=== PATIENT | female | born 1935 | race Caucasian/White ===

== ENCOUNTER 2016-09-11 14:07 | Inpatient (IN) | payer MEDICARE, OTHER ==
[~2016-09-11] VITALS: Ht 180.3 cm; Wt 60.0 kg
[2016-09-11] MEDS ORDERED: IOVERSOL 350 MG/ML 100 ML VIAL ONE (14:18)
[2016-09-11] MEDS ORDERED: SODIUM CHLORIDE 0.9% 100 ML ONE (14:19)
[2016-09-11 14:25] LABS: BASOPHILS % (AUTO) 0.2 % (0.0-2.0); EOSINOPHILS % (AUTO) 1.2 % (1.0-6.0); HEMATOCRIT 34.2 % (36-46); HEMOGLOBIN 11.2 g/dL (12.0-16.0); LYMPHOCYTES # (AUTO) 2.9 K/uL (1.0-4.8); LYMPHOCYTES % (AUTO) 44.8 % (22.0-44.0); MEAN CORPUSCULAR HEMOGLOBIN 28.8 pg (26.0-34.0); MEAN CORPUSCULAR HGB CONC 32.6 G/dL (31.0-37.0); MEAN CORPUSCULAR VOLUME 88 fL (80-100); MONOCYTES # (AUTO) 0.2 K/uL (0.1-1.0); MONOCYTES % (AUTO) 3.5 % (2.0-9.0); NEUTROPHILS # (AUTO) 3.3 K/uL (1.8-7.7); NEUTROPHILS % (AUTO) 50.3 % (40.0-70.0); PLATELET COUNT (AUTO) 269 K/uL (150-450); RED BLOOD CELL COUNT(AUTO) 3.87 MIL/uL (4.00-5.20); RED CELL DISTRIBUTION WIDTH 13.5 % (11.5-14.5); WHITE BLOOD COUNT (AUTO) 6.6 K/uL (4.5-11.0)
[2016-09-11 14:38] LABS: ANION GAP 16 mmol/L (8-16); CALCIUM, TOTAL 8.4 mg/dL (8.8-10.5); CARBON DIOXIDE 18 mmol/L (22-29); CHLORIDE 105 mmol/L (98-107); CREATININE 1.54 mg/dL (0.60-1.30); GLOMERULAR FILTR. RATE CALC 32 mL/min (>60); POTASSIUM 4.5 mmol/L (3.5-5.1); SODIUM SERUM 139 mmol/L (136-145); UREA NITROGEN, BLOOD 26 mg/dL (7-18)
[2016-09-11] MEDS ORDERED: ACETAMINOPHEN 1000 MG/ISO-OSM 100 ML IV ONE (15:00)
[2016-09-11 15:01] LABS: ALANINE AMINOTRANSFERASE 38 U/L (12-78); ALBUMIN 3.2 g/dL (3.4-5.0); ASPARTATE AMINOTRANSFERASE 69 U/L (15-37); BILIRUBIN,TOTAL 0.3 mg/dL (0.1-1.0); CREATINE KINASE MB 3.2 ng/mL (0-5); CREATINE KINASE, TOTAL 241 U/L (26-192)
[2016-09-11 15:14] LABS: LACTIC ACID 2.9 mmol/L (0.4-2.0)
[2016-09-11] MEDS ORDERED: LORazepam 2 MG/ML VIAL IM ONE (15:30)
[2016-09-11] MEDS ORDERED: SIMV-260 PO (15:39)
[2016-09-11] MEDS ORDERED: CYCL10 PO (15:39)
[2016-09-11] MEDS ORDERED: ASPI81 PO (15:39)
[2016-09-11] MEDS ORDERED: OMEP20 PO (15:39)
[2016-09-11] MEDS ORDERED: MULT-1259 PO (15:39)
[2016-09-11] MEDS ORDERED: TOLT2CAP27 PO (15:39)
[2016-09-11] MEDS ORDERED: HYDR-305 PO (15:39)
[2016-09-11] MEDS ORDERED: ATEN25 PO (15:39)
[2016-09-11] MEDS ORDERED: CALC-687 PO (15:39)
[2016-09-11] MEDS ORDERED: ALPR0.5T8 PO (15:39)
[2016-09-11] MEDS ORDERED: PIPERACILLIN/TAZO 3.375 GM/D5W 50 ML IV ONE (15:45)
[2016-09-11 16:22] LABS: REFLEX LACTIC ACID? YES YES
[2016-09-11 16:36] LABS: APPEARANCE,URINE CLEAR (CLEAR); GLUCOSE, URINE (UA) NEGATIVE (NEGATIVE); KETONES,URINE NEGATIVE (NEGATIVE); LEUKOCYTE ESTERASE ,URINE NEGATIVE (NEGATIVE); OCCULT BLOOD,URINE LARGE (NEGATIVE); PH,URINE 5.5 (5.0-8.0); PROTEIN,URINE POS 1+ (NEGATIVE)
[2016-09-11 16:39] LABS: ADD UA MICROSCOPIC YES
[2016-09-11 17:42] LABS: SQUAMOUS EPITHELIAL CELL,UR Few /LPF (None Seen)
[2016-09-11 19:23] LABS: INFLUENZA TYPE B NEGATIVE FOR TYPE B (NEGATIVE)
[2016-09-11] MEDS ORDERED: MAGNESIUM HYDROXIDE SUSPENSION 30 ML UDCUP PO PRN (21:00)
[2016-09-11] MEDS ORDERED: ACETAMINOPHEN 325 MG TABLET PO PRN (21:00)
[2016-09-11] MEDS ORDERED: BISACODYL 10 MG RECTAL RECTAL SUPPOSITORY PR PRN (21:00)
[2016-09-11] MEDS ORDERED: ALBUTEROL SULFATE 2.5 MG/0.5 ML NEB SOLUTION NEB PRN (21:00)
[2016-09-11 21:17] VITALS: BP 138/64
[2016-09-11] MEDS: ASPIRIN 81 MG CHEWABLE TABLET PO SCH (22:37)
[2016-09-11] MEDS: DOCUSATE SODIUM 100 MG CAPSULE PO SCH (22:37)
[2016-09-11] MEDS: SIMVASTATIN 20 MG TABLET PO SCH (22:38)
[2016-09-11] MEDS: SODIUM CHLORIDE 0.9% 1,000 ML IV SCH (22:39)
[2016-09-11 23:56] VITALS: BP 122/57
[2016-09-12] MEDS: HEPARIN SODIUM,PORCINE 5,000 UNITS/ML VIAL SQ SCH ×4 (00:19→23:26)
[2016-09-12 04:24] VITALS: BP 155/70
[2016-09-12 07:23] LABS: BASOPHILS % (AUTO) 0.3 % (0.0-2.0); EOSINOPHILS % (AUTO) 0.1 % (1.0-6.0); HEMATOCRIT 32.9 % (36-46); HEMOGLOBIN 10.5 g/dL (12.0-16.0); LYMPHOCYTES # (AUTO) 2.1 K/uL (1.0-4.8); LYMPHOCYTES % (AUTO) 18.2 % (22.0-44.0); MEAN CORPUSCULAR HEMOGLOBIN 28.8 pg (26.0-34.0); MEAN CORPUSCULAR VOLUME 90 fL (80-100); MONOCYTES # (AUTO) 0.7 K/uL (0.1-1.0); NEUTROPHILS # (AUTO) 8.5 K/uL (1.8-7.7); NEUTROPHILS % (AUTO) 75.4 % (40.0-70.0); PLATELET COUNT (AUTO) 203 K/uL (150-450); RED BLOOD CELL COUNT(AUTO) 3.65 MIL/uL (4.00-5.20); RED CELL DISTRIBUTION WIDTH 13.8 % (11.5-14.5); WHITE BLOOD COUNT (AUTO) 11.3 K/uL (4.5-11.0)
[2016-09-12 07:37] LABS: CALCIUM, TOTAL 8.4 mg/dL (8.8-10.5); CREATININE 1.18 mg/dL (0.60-1.30); POTASSIUM 3.1 mmol/L (3.5-5.1)
[2016-09-12] MEDS: DOCUSATE SODIUM 100 MG CAPSULE PO SCH ×2 (08:23→21:07)
[2016-09-12] MEDS: ASPIRIN 81 MG CHEWABLE TABLET PO SCH (08:23)
[2016-09-12] MEDS: PANTOPRAZOLE SODIUM 40 MG DR TABLET PO SCH (08:23)
[2016-09-12 08:29] VITALS: BP 148/74
[2016-09-12 11:54] VITALS: BP 156/70
[2016-09-12] MEDS ORDERED: VANCOMYCIN HCL 1 GM/D5% WATER 200 ML IV ONE (13:00)
[2016-09-12] MEDS: SODIUM CHLORIDE 0.9% 1,000 ML IV SCH (13:12)
[2016-09-12 15:15] VITALS: BP 157/65
[2016-09-12 19:20] VITALS: BP 161/61
[2016-09-12] MEDS ORDERED: PNEUMOCOCCAL VACCINE POLYVALENT 0.5 ML VIAL [PPSV23] IM ONE (19:45)
[2016-09-12] MEDS: SIMVASTATIN 20 MG TABLET PO SCH (21:07)
[2016-09-12 23:15] VITALS: BP 158/79
[2016-09-13 04:25] VITALS: BP 159/85
[2016-09-13] MEDS: SODIUM CHLORIDE 0.9% 1,000 ML IV SCH ×2 (04:33→18:50)
[2016-09-13 06:39] LABS: BASOPHILS % (AUTO) 0.2 % (0.0-2.0); EOSINOPHILS % (AUTO) 0.2 % (1.0-6.0); HEMATOCRIT 33.2 % (36-46); HEMOGLOBIN 10.7 g/dL (12.0-16.0); LYMPHOCYTES # (AUTO) 1.6 K/uL (1.0-4.8); LYMPHOCYTES % (AUTO) 15.9 % (22.0-44.0); MEAN CORPUSCULAR HEMOGLOBIN 28.9 pg (26.0-34.0); MEAN CORPUSCULAR HGB CONC 32.3 G/dL (31.0-37.0); MEAN CORPUSCULAR VOLUME 90 fL (80-100); MONOCYTES # (AUTO) 0.5 K/uL (0.1-1.0); MONOCYTES % (AUTO) 5.2 % (2.0-9.0); NEUTROPHILS # (AUTO) 7.9 K/uL (1.8-7.7); NEUTROPHILS % (AUTO) 78.5 % (40.0-70.0); PLATELET COUNT (AUTO) 189 K/uL (150-450); RED CELL DISTRIBUTION WIDTH 14.3 % (11.5-14.5); WHITE BLOOD COUNT (AUTO) 10.1 K/uL (4.5-11.0)
[2016-09-13 07:04] LABS: ALBUMIN 2.9 g/dL (3.4-5.0); BILIRUBIN,TOTAL 0.5 mg/dL (0.1-1.0); CALCIUM, TOTAL 8.7 mg/dL (8.8-10.5); CREATININE 1.05 mg/dL (0.60-1.30); POTASSIUM 3.6 mmol/L (3.5-5.1); TOTAL PROTEIN, SERUM 6.2 g/dL (6.4-8.2)
[2016-09-13 07:40] VITALS: BP 159/79
[2016-09-13] MEDS: PANTOPRAZOLE SODIUM 40 MG DR TABLET PO SCH (08:55)
[2016-09-13] MEDS: ASPIRIN 81 MG CHEWABLE TABLET PO SCH (08:55)
[2016-09-13] MEDS: VANCOMYCIN HCL 1 GM/D5% WATER 200 ML IV SCH (08:55)
[2016-09-13] MEDS: DOCUSATE SODIUM 100 MG CAPSULE PO SCH ×2 (08:55→20:28)
[2016-09-13] MEDS: HEPARIN SODIUM,PORCINE 5,000 UNITS/ML VIAL SQ SCH ×2 (08:55→16:00)
[2016-09-13 11:06] VITALS: BP 152/69
[2016-09-13 16:00] VITALS: BP 143/62
[2016-09-13 19:50] VITALS: BP 135/73
[2016-09-13] MEDS: SIMVASTATIN 20 MG TABLET PO SCH (20:28)
[2016-09-13] MEDS ORDERED: 0.9% SODIUM CHLORIDE 10 ML SYRINGE IVP PRN (22:15)
[2016-09-13 23:31] VITALS: BP 157/73
[2016-09-14] MEDS ORDERED: ALPRAZolam 0.25 MG TABLET PO PRN (03:15)
[2016-09-14] MEDS ORDERED: HYDROCODONE/ACETAMINOPHEN 10-325 MG TABLET PO PRN (03:15)
[2016-09-14 05:48] VITALS: BP 153/70
[2016-09-14] MEDS ORDERED: HYDROCODONE/ACETAMINOPHEN 10-325 MG TABLET PO SCH (06:00)
[2016-09-14] MEDS ORDERED: ALPRAZolam 0.25 MG TABLET PO SCH (06:00)
[2016-09-14 06:22] LABS: GLUCOSE,POINT OF CARE 101 MG/DL (70-110)
[2016-09-14 06:25] LABS: CALCIUM, TOTAL 8.3 mg/dL (8.8-10.5); CREATININE 0.91 mg/dL (0.60-1.30); POTASSIUM 3.6 mmol/L (3.5-5.1)
[2016-09-14] MEDS: HEPARIN SODIUM,PORCINE 5,000 UNITS/ML VIAL SQ SCH ×4 (08:00→23:20)
[2016-09-14] MEDS: VANCOMYCIN HCL 1 GM/D5% WATER 200 ML IV SCH (08:10)
[2016-09-14] MEDS: SODIUM CHLORIDE 0.9% 1,000 ML IV SCH (08:10)
[2016-09-14] MEDS: ASPIRIN 81 MG CHEWABLE TABLET PO SCH (08:10)
[2016-09-14] MEDS: CYCLOBENZAPRINE HCL 10 MG TABLET PO SCH ×2 (08:11→21:27)
[2016-09-14] MEDS: DOCUSATE SODIUM 100 MG CAPSULE PO SCH ×2 (08:11→21:27)
[2016-09-14] MEDS: TOLTERODINE TARTRATE 4 MG PO SCH (08:11)
[2016-09-14] MEDS: PANTOPRAZOLE SODIUM 40 MG DR TABLET PO SCH (08:11)
[2016-09-14 08:17] VITALS: BP 140/76
[2016-09-14 11:20] VITALS: BP 155/73
[2016-09-14 16:02] LABS: ALBUMIN 2.9 g/dL (3.4-5.0); BILIRUBIN,TOTAL 0.4 mg/dL (0.1-1.0); TOTAL PROTEIN, SERUM 5.5 g/dL (6.4-8.2)
[2016-09-14 16:32] VITALS: BP 146/85
[2016-09-14 19:57] VITALS: BP 136/69
[2016-09-14] MEDS: SIMVASTATIN 20 MG TABLET PO SCH (21:27)
[2016-09-14 23:16] VITALS: BP 155/76
[2016-09-15 04:26] VITALS: BP 159/66
[2016-09-15 07:15] LABS: CALCIUM, TOTAL 8.5 mg/dL (8.8-10.5); CREATININE 0.93 mg/dL (0.60-1.30); POTASSIUM 3.6 mmol/L (3.5-5.1)
[2016-09-15 07:49] VITALS: BP 164/87
[2016-09-15] MEDS: PANTOPRAZOLE SODIUM 40 MG DR TABLET PO SCH (08:58)
[2016-09-15] MEDS: VANCOMYCIN HCL 1 GM/D5% WATER 200 ML IV SCH (08:58)
[2016-09-15] MEDS: DOCUSATE SODIUM 100 MG CAPSULE PO SCH (08:58)
[2016-09-15] MEDS: TOLTERODINE TARTRATE 4 MG PO SCH (08:58)
[2016-09-15] MEDS: CYCLOBENZAPRINE HCL 10 MG TABLET PO SCH (08:58)
[2016-09-15] MEDS: ASPIRIN 81 MG CHEWABLE TABLET PO SCH (08:58)
[2016-09-15] MEDS: HEPARIN SODIUM,PORCINE 5,000 UNITS/ML VIAL SQ SCH ×2 (08:58→17:25)
[2016-09-15 11:02] VITALS: BP 161/78
[2016-09-15 11:13] LABS: HEPATITIS Bs ANTIGEN SCREEN P Negative (Negative); HEPATITIS C AB SCREEN <0.1 s/co ratio (0.0-0.9)
[2016-09-15 15:10] VITALS: BP 167/81
[2016-09-15 16:16] LABS: CALCIUM, TOTAL 8.5 mg/dL (8.8-10.5); POTASSIUM 4.1 mmol/L (3.5-5.1)
[2016-09-15] MEDS ORDERED: FISH1CAP50 PO (18:43)
[2016-09-16] MEDS ORDERED: MULTIVITAMINS WITH MINERALS, THERAPEUTIC TABLET PO SCH (09:00)
== END 2016-09-15 19:00 | disposition home or self-care (01) | DRG 682 ==
LOC: EMS 14:09 → 5N 19:30
PROVIDERS: ADMIT Internal Medicine; ATTEND Internal Medicine
DX: N17.9 Acute kidney failure, unspecified (principal); G92 Toxic encephalopathy; E44.0 Moderate protein-calorie malnutrition; I10 Essential (primary) hypertension; M19.90 Unspecified osteoarthritis, unspecified site; I66.01 Occlusion and stenosis of right middle cerebral artery; Z96.641 Presence of right artificial hip joint; Z96.653 Presence of artificial knee joint, bilateral; R33.9 Retention of urine, unspecified; R50.9 Fever, unspecified; R55 Syncope and collapse; E86.0 Dehydration; D64.9 Anemia, unspecified; E87.6 Hypokalemia; Z79.899 Other long term (current) drug therapy; Z79.82 Long term (current) use of aspirin; Z28.21 Immunization not carried out because of patient refusal
CPT/HCPCS: 70496; 70551; 74010; 74176; 80074; 82962; 83605; 87040; 87804; 90471; 93005; 93306; 93880; 96365; 96366; 96368; 96372; 97161; 99291; J0131; J1644; J2060; J2543; J3370; J7030; J7050